=== PATIENT | female | born 1965 | race Two or more races ===

== ENCOUNTER → 2020-06-26 | Outpatient (CLI) | payer OTHER ==
--- NOTE | 2020-06-26 10:53 | RAD ---
CT LUMBAR SPINE WO CONTRAST Indication: Low back pain L3-4 Technique: Noncontrast CT imaging was performed of the lumbar spine, multiplanar reconstruction images submitted. One or more of the following individualized dose reduction techniques were utilized for this examination: 1. Automated exposure control 2. Adjustment of the mA and/or kV according to patient size 3. Use of iterative reconstruction technique. Comparison: None Findings: Lumbar vertebral body stature is maintained. There is grade 1 anterior spondylolisthesis at L4-5 at which there is facet into change. There is [id number]-[id number] L4-5 degenerative disc disease, also to a somewhat lesser degree posteriorly L5-S1 and eccentric to the right at L3-4. There is mild lumbar levoscoliosis centered near L3-4. No acute lumbar spine fracture is identified. There is small 0.7 cm focus of nonspecific sclerosis of the left superior L1 vertebral body There is approximate 4.9 cm hypodense lesion of the right adnexa with density measurements 25 Hounsfield units. There is scattered plaque of the visualized abdominal aorta, probable moderate narrowing of the infrarenal abdominal aorta. There is also likely degree of stenosis of the left renal artery origin. L1-L2: There is facet degenerative change. Osseous spinal canal and neural foramina are adequate. L2-3: There is moderate bilateral facet hypertrophic change. Osseous spinal canal and neural foramina are adequate. L3-4: There is moderate bilateral facet hypertrophic change. Osseous spinal canal and left neural foramen are adequate. There is moderate posterior narrowing of the right neural foramen by facet. L4-L5: There is severe bilateral facet degenerative change. There is mild buckling of the ligamentum flavum. There is likely [id number] narrowing of the far lateral recesses greater on the left and likely mild transverse narrowing of the central canal. There is mild bilateral neural foramina compromise somewhat greater on the left, primarily narrowing from posteriorly by facets. L5-S1: There is moderate facet degenerative change. Spinal canal and neural foramina are overall adequate. IMPRESSION: 1. There is suspected [id number] narrowing of the far lateral recesses greater on the left at L4-5. There is moderate narrowing of the right L3-4 neural foramen, mild narrowing bilaterally at L4-5. 2. There are is grade 1 anterior spondylolisthesis L4-5 at which there is facet degenerative change. There is lumbar levoscoliosis. 3. There is degenerative disc disease greatest at L4-5 and L5-S1. 4. There is hypodense lesion of the right adnexa, may be somewhat complex cyst although ultrasound characterization recommended. 5. There is plaque of the abdominal aorta with degree of stenosis, also likely degree of narrowing of the proximal left renal artery. Electronically signed by: Eder Mendoza MD (06/26/2020 10:50 AM) [facility]
== END ==
LOC: CT 09:41
PROVIDERS: ATTEND Family Medicine
DX: M47.816 Spondylosis without myelopathy or radiculopathy, lumbar region (principal); M51.37 Other intervertebral disc degeneration, lumbosacral region; M48.07 Spinal stenosis, lumbosacral region; M41.86 Other forms of scoliosis, lumbar region; I70.0 Atherosclerosis of aorta; M48.061 Spinal stenosis, lumbar region without neurogenic claudication
CPT/HCPCS: 72131